=== PATIENT | male | born 1940 | race Caucasian/White ===

== ENCOUNTER → 2018-05-12 | Outpatient (CLI) | payer MEDICARE ==
[~2018-05-12] MED LIST: ISOVUE-370 76% 100ML VIAL (Q9967) As Ordered ONE
[2018-05-12 12:09] LABS: HEMATOCRIT 42.3 % (42.0-52.0); MEAN CORPUSCULAR HEMOGLOBIN 31.5 pg (27.0-33.0); MEAN CORPUSCULAR HGB CONC 33.1 g/dl (32.0-36.5); MEAN CORPUSCULAR VOLUME 95.1 fl (80.0-96.0); PLATELET COUNT, AUTOMATED 351 10^3/uL (150-450); RED BLOOD COUNT 4.45 10^6/uL (4.30-6.10); WHITE BLOOD COUNT 7.8 10^3/uL (4.0-10.0)
[2018-05-12 12:52] LABS: BLOOD UREA NITROGEN 15 MG/DL (7-18); CALCIUM LEVEL 9.3 MG/DL (8.8-10.2); CARBON DIOXIDE LEVEL 30 MEQ/L (21-32); CHLORIDE LEVEL 105 MEQ/L (98-107); CREATININE FOR GFR 0.98 MG/DL (0.70-1.30); GLOMERULAR FILTRATION RATE > 60.0 (>42); GLUCOSE, FASTING 109 MG/DL (70-100); MAGNESIUM LEVEL 1.9 MG/DL (1.8-2.4); NT-PRO BNP 471 PG/ML (<450); POTASSIUM SERUM 4.5 MEQ/L (3.5-5.1); SODIUM LEVEL 141 MEQ/L (136-145)
--- NOTE | 2018-05-12 13:53 | REP ---
CT PULMONARY ANGIOGRAM: With IV contrast. HISTORY: Shortness of breath. COMPARISON STUDIES: No comparison study. CONTRAST DOSE: 75 mL of Isovue [address] TECHNIQUE: Helical scanning is acquired and overlapping 1.5 mm and contiguous 3 mm axial images are reformatted. In addition, maximum intensity projection and multiplanar re-formation images are generated in sagittal and coronal imaging projections. CT PULMONARY ANGIOGRAPHIC FINDINGS: There is good opacification of the pulmonary arterial tree. Axial, MPR, and MIP images show no filling defect or vessel cutoff to suggest pulmonary embolus. The thoracic aorta enhances homogeneously and is normal in course and caliber. No aneurysm or dissection is seen. There is moderate vascular calcification. The patient is status post prior median sternotomy. There is a small left pleural effusion. Minimal atelectatic changes are seen in the left lower lobe. The lung hussein are otherwise clear. No infiltrate is seen. No hilar or mediastinal mass or adenopathy is observed. No adrenal lesion is observed. Bone window settings demonstrate no bony destructive lesion. IMPRESSION: No CT evidence of pulmonary embolus. Small amount of left pleural effusion. Otherwise no acute disease. Prior sternotomy. Vascular calcification. Electronically Signed by Dayday Limon MD 05/12/2018 05:16 P
== END ==
LOC: M RAD 11:50
PROVIDERS: ATTEND Physician Assistant
DX: J90 Pleural effusion, not elsewhere classified (principal); R06.02 Shortness of breath; I27.29 Other secondary pulmonary hypertension; I25.10 Atherosclerotic heart disease of native coronary artery without angina pectoris; I47.1 Supraventricular tachycardia
CPT/HCPCS: 71275; 80048; 83735; 83880; 84443; 85027; Q9967

== ENCOUNTER → 2019-06-08 | Outpatient (CLI) | payer MEDICARE ==
--- NOTE | 2019-06-08 14:44 | REP ---
Clinical: Rhonchi and chest pain . Comparison: 02/11/2010 . Technique: PA and lateral. Findings: The mediastinum and cardiac silhouette are normal. The lung hussein are clear and without acute consolidation, significant effusion, or pneumothorax. Subtle opacities at the left base with loss of the diaphragmatic surface and costophrenic angle is similar to prior examination although small superimposed effusion cannot be excluded. The skeletal structures are intact and normal. Impression: 1. Chronic-appearing changes at the left base suggested although subtle superimposed acute process cannot be excluded. . 2. No focal consolidation. Electronically Signed by Andre Wilkins MD 06/08/2019 02:34 P
== END ==
LOC: M CLY 13:57
PROVIDERS: ATTEND Family Medicine
DX: R09.89 Other specified symptoms and signs involving the circulatory and respiratory systems (principal)

== ENCOUNTER → 2020-11-30 | Outpatient (CLI) | payer OTHER ==
--- NOTE | 2020-12-02 08:32 | REP ---
INDICATION: PAIN, EDEMA, EVAL 2ND MT BONE. COMPARISON: None. TECHNIQUE: Routine scans obtained without gadolinium enhancement. FINDINGS: There are erosions in the head head calcaneus, talus, acute forms, cuboid and 2nd 3rd and 4th metatarsal bases and also in the proximal shaft of the 3rd metatarsal. There is synovitis in the midfoot. The findings are consistent with inflammatory arthritis. There are no fractures. The plantar fascia is unremarkable. The tendons are intact. IMPRESSION: Erosions in the midfoot consistent with inflammatory arthritis. <Electronically signed by David Cr > 12/02/20 [id number]
== END ==
LOC: M PLARAD 13:28
PROVIDERS: ATTEND Podiatrist Foot & Ankle Surgery
DX: M19.90 Unspecified osteoarthritis, unspecified site (principal)

== ENCOUNTER → 2022-03-21 | Outpatient (REF) | payer MEDICARE | LOC: M SFHCCLAY 12:28 | PROVIDERS: ATTEND Family Medicine | DX: R19.7 Diarrhea, unspecified (principal) ==

== ENCOUNTER 2022-10-03 18:24 | Emergency (ER) | payer MEDICARE, OTHER ==
[~2022-10-03] VITALS: Ht 170.2 cm; Wt 87.4 kg
[2022-10-03 22:11] VITALS: BP 146/68; TEMP 97.6; O2SAT 95
== END 2022-10-03 22:17 | disposition home or self-care (01) ==
LOC: M ED 18:24
DX: S86.112A Strain of other muscle(s) and tendon(s) of posterior muscle group at lower leg level, left leg, initial encounter (principal); X58.XXXA Exposure to other specified factors, initial encounter; Y92.89 Other specified places as the place of occurrence of the external cause; Y93.89 Activity, other specified; Y99.8 Other external cause status

== ENCOUNTER → 2023-09-24 | Outpatient (REF) | payer MEDICARE ==
[2023-09-24 19:12] LABS: BLOOD UREA NITROGEN 17 MG/DL (9-23); CALCIUM LEVEL 9.2 MG/DL (8.3-10.6); CARBON DIOXIDE LEVEL 30 MMOL/L (20-31); CHLORIDE LEVEL 109 MMOL/L (98-107); GLOMERULAR FILTRATION RATE > 60.0 (>35); GLUCOSE, FASTING 99 MG/DL (74-106); POTASSIUM SERUM 4.9 MMOL/L (3.5-5.1); SODIUM LEVEL 143 MMOL/L (136-145)
== END ==
LOC: M SFHCCLAY 14:01
PROVIDERS: ATTEND Family Medicine
DX: E11.9 Type 2 diabetes mellitus without complications (principal)

== ENCOUNTER → 2024-08-11 | Day surgery (SDC) | payer MEDICARE, OTHER ==
[2024-07-28] MEDS: BSS IRRIG/VANCO(10MG)/TOBRA(5MG)/EPINEPH(1:1000-0.5CC)500ML BAG-ORONLY As Ordered ONE (08:18)
[2024-07-28] MEDS: CEFUROXIME 1MG/0.1ML INTRACAMERAL INJ As Ordered ONE (08:18)
[2024-07-28] MEDS: LIDOCAINE 1% SDV 5ML VIAL As Ordered ONE (08:19)
[~2024-08-11] VITALS: Ht 170.2 cm; Wt 84.9 kg
[~2024-08-11] MED LIST changes: +ATOR80TA59 PO; +CYCLOPENTOLATE 1% OPHTH SOLN 2ML BTL OD SCH; +DIAZ5TAB PO; +ECOT81TA5 PO; +FINA5TAB2 PO; -ISOVUE-370 76% 100ML VIAL (Q9967) As Ordered ONE; +MELO7.5T35 PO; +METO50TA7 PO; +MIDAZOLAM INJ 2MG/2ML VIAL As Ordered ONE; +NOXI1TAB PO; +OMEP-173 PO; +PHENYLEPHRINE 10% OPHTH SOL 5ML OD PRN; +PHENYLEPHRINE 2.5% OPHTH SOL 2ML OD SCH; +TAMS1CAP17 PO; +TROPICAMIDE 1% OPHTH SOLN 15ML OD SCH; +fentaNYL 100 MCG/2 ML INJECTION As Ordered ONE
[2024-08-11] MEDS: OFLOXACIN 0.3 % (OCUFLOX) OPTH SOL 5ML OD ONE ×2 (08:24→08:31)
[2024-08-11] MEDS: TROPICAMIDE 1% OPHTH SOLN 15ML OD SCH (08:24)
[2024-08-11] MEDS: CYCLOPENTOLATE 1% OPHTH SOLN 2ML BTL OD SCH (08:25)
[2024-08-11] MEDS: LIDOCAINE 3.5 % 1ML OPHTH TOPICAL GEL OU ONE ×2 (08:25→08:31)
[2024-08-11] MEDS: PHENYLEPHRINE 2.5% OPHTH SOL 2ML OD SCH (08:25)
[2024-08-11 09:30] VITALS: BP 148/67; TEMP 96.7; O2SAT 96
== END | disposition home or self-care (01) ==
LOC: M SDC 07:12
PROVIDERS: ATTEND Ophthalmology
DX: H25.11 Age-related nuclear cataract, right eye (principal); I10 Essential (primary) hypertension; E78.00 Pure hypercholesterolemia, unspecified; I25.2 Old myocardial infarction; R73.03 Prediabetes; N40.0 Benign prostatic hyperplasia without lower urinary tract symptoms; Z79.899 Other long term (current) drug therapy; Z79.82 Long term (current) use of aspirin; Z95.1 Presence of aortocoronary bypass graft; Z95.5 Presence of coronary angioplasty implant and graft; Z87.891 Personal history of nicotine dependence
CPT/HCPCS: 66984; J0697; J2250; J3010; V2632

== ENCOUNTER 2024-10-27 08:58 | Day surgery (SDC) | payer MEDICARE, OTHER ==
[~2024-10-27] VITALS: Ht 170.2 cm; Wt 85.3 kg
[~2024-10-27 08:58] MED LIST changes: -CYCLOPENTOLATE 1% OPHTH SOLN 2ML BTL OD SCH; -MIDAZOLAM INJ 2MG/2ML VIAL As Ordered ONE; -PHENYLEPHRINE 10% OPHTH SOL 5ML OD PRN; +PHENYLEPHRINE 10% OPHTH SOL 5ML OS PRN; -PHENYLEPHRINE 2.5% OPHTH SOL 2ML OD SCH; -TROPICAMIDE 1% OPHTH SOLN 15ML OD SCH; -fentaNYL 100 MCG/2 ML INJECTION As Ordered ONE
[2024-10-27] MEDS: OFLOXACIN 0.3 % (OCUFLOX) OPTH SOL 5ML OS ONE (10:15)
[2024-10-27 10:22] VITALS: O2SAT 96
[2024-10-27] MEDS: LIDOCAINE 3.5% 1 ML OPHTH TOPICAL GEL OU ONE (10:29)
[2024-10-27] MEDS: TROPICAMIDE 1% OPHTH SOLN 15ML OS SCH (10:30)
[2024-10-27] MEDS: PHENYLEPHRINE 2.5% OPHTH SOL 2ML OS SCH (10:30)
[2024-10-27] MEDS: CYCLOPENTOLATE 1% OPHTH SOLN 2 ML BTL OS SCH (10:30)
[2024-10-27] MEDS ORDERED: MIDAZOLAM INJ 2 MG/2 ML VIAL As Ordered ONE (10:33)
[2024-10-27] MEDS: LIDOCAINE 1% SDV 5 ML VIAL As Ordered ONE (11:35)
[2024-10-27] MEDS: BSS IRRIG/VANCO(10MG)/TOBRA(5MG)/EPINEPH(1:1000-0.5CC)500ML BAG-ORONLY As Ordered ONE (11:35)
[2024-10-27] MEDS: CEFUROXIME 1 MG/0.1 ML INTRACAMERAL INJ As Ordered ONE (11:40)
[2024-10-27 11:49] VITALS: BP 146/70; TEMP 97.6
== END 2024-10-27 12:02 | disposition home or self-care (01) ==
LOC: M SDC 08:58
PROVIDERS: ATTEND Ophthalmology
DX: H25.12 Age-related nuclear cataract, left eye (principal); I10 Essential (primary) hypertension; I25.2 Old myocardial infarction; N40.0 Benign prostatic hyperplasia without lower urinary tract symptoms; E78.00 Pure hypercholesterolemia, unspecified; Z95.5 Presence of coronary angioplasty implant and graft; Z79.899 Other long term (current) drug therapy; Z79.82 Long term (current) use of aspirin; Z95.1 Presence of aortocoronary bypass graft; Z79.1 Long term (current) use of non-steroidal anti-inflammatories (NSAID); Z98.41 Cataract extraction status, right eye
CPT/HCPCS: 66984; J0697; J2250; J3010; V2632